=== PATIENT | male | born 1960 | race Caucasian/White ===

== ENCOUNTER 2018-01-24 12:23 | Inpatient (IN) | payer OTHER ==
[~2018-01-24] VITALS: Ht 177.8 cm; Wt 104.3 kg
[~2018-01-24 12:23] MED LIST: ALPRAZOLAM0.5 M3 PO; FLOMAX(MONOGRA0.4 MG PO; PERCOCET 325 MG1 TA2 PO; SIMPLY SLEEP25 MG PO
--- NOTE | 2018-01-24 14:14 | ED GENERAL ADULT ---
History of Present Illness General Chief Complaint: Allergy Symptoms Stated Complaint: ALLERGIC REACTION, "HIVES" Source: patient Exam Limitations: no limitations Vital Signs & Intake/Output Vital Signs & Intake/Output Vital Signs Date Time Temp Pulse Resp B/P B/P Pulse O2 O2 Flow FiO2 Mean Ox Delivery Rate 01/24 1509 99 Room Air 01/24 1508 98.0 79 18 134/70 98 Room Air 01/24 1228 98.7 101 20 151/78 97 Room Air Allergies Coded Allergies: bacitracin (RASH 01/24/18) latex (RASH 01/24/18) neomycin (RASH 01/24/18) Reconcile Medications Acetaminophen (Non-Aspirin Pain Relief) 325 MG TABLET 2 TAB PO Q6H PRN PAIN/ FEVER (Reported) Alprazolam (Xanax) 0.5 MG TABLET 1 TAB PO QPM ANXIETY (Reported) Amoxicillin/Potassium Clav (Augmentin 875-125 Tablet) 875 MG-125 MG TABLET 1 TAB PO BID ABX (Reported) Aspirin (Lo-Dose Aspirin EC) 81 MG TABLET.DR 1 TAB PO BID HEART/BLOOD ( Reported) diphenhydrAMINE HCl (Benadryl) 25 MG CAP 2 CAP PO Q4H PRN ALLERGIC REACTION ( Reported) Famotidine (Pepcid) 20 MG TABLET 1 TAB PO BID UNKNOWN (Reported) Lactobacillus Acidophilus (Probiotic) (Unknown Strength) CAPSULE (Unknown Dose ) PO DAILY PROBIOTIC (Reported) Omeprazole 40 MG CAPSULE.DR 1 CAP PO QHS GI (Reported) Prednisone (Unknown Strength) TABLET (Unknown Dose) PO AD STEROID TAPER ( Reported) Triage Note: PT TO ED C/O ? ALLERGIC REACTION. PT STATES HE IS S/P TOTAL HIP REPLACEMENT 12 DAYS AGO. PT STARTED WITH HIVES ON THURSDAY, WENT TO [facility] AND WAS GIVEN PREDNISONE. STATES THIS AM HIVES ARE WORSE AND ALL OVER. TOOK BENADRYL AT 0700 THIS AM. DENIES NEW SOAP, DETERGENT, LOTION. Triage Nurses Notes Reviewed? yes HPI: 58-year-old male presents emergency department reporting full body hives and itching. He states on January 12, 2018 he had right hip total replacement by Dr. Langley. He states he was given antibiotics at that time during the surgery but was not sent home on any antibiotics. He states that as the days passed he was taking oxycodone 10 mg which he has taken in the past when he had another surgery without any reaction to this. The last dose of this he took was last night. He had been taking hydrocodone-acetaminophen for the last couple of months rx'd by his PCP because of the right hip pain since it was "bone on bone ". He states that the hives and itching have been ongoing for about a week and a half, states he has tried taking Benadryl was also seen by PCP who had given him prednisone to take home. Patient reports he had started this on Thursday however no relief over the last 2 days. He also reports worsening from yesterday into today. He states that the point where he thinks he may have difficulty breathing soon. At this time he denies shortness of breath, chest pain, difficulty breathing, nausea/vomiting. Past History Travel History Traveled to [place] past 21 day No Medical History Any Pertinent Medical History? see below for history Gastrointestinal: GERD Musculoskeletal: right hip replacement Surgical History Surgical History: hip replacement (R) Psychosocial History What is your primary language Portuguese Tobacco Use: Never used ETOH Use: denies use Illicit Drug Use: denies illicit drug use Family History Hx Contributory? No Review of Systems Review of Systems Constitutional: Reports: see HPI. EENTM: Reports: no symptoms. Respiratory: Reports: see HPI. Cardiovascular: Reports: no symptoms. GI: Reports: no symptoms. Genitourinary: Reports: no symptoms. Musculoskeletal: Reports: no symptoms. Skin: Reports: see HPI. Neurological/Psychological: Reports: no symptoms. Hematologic/Endocrine: Reports: no symptoms. Immunologic/Allergic: Reports: no symptoms. All Other Systems: Reviewed and Negative Physical Exam Physical Exam General Appearance: well developed/nourished, no apparent distress, alert, awake , comfortable, profusely itching during exam Head: atraumatic, normal appearance Eyes: Bilateral: normal appearance. Ears, Nose, Throat: lips appear taught, face mildly edematous Neck: normal inspection, full range of motion Respiratory: normal breath sounds, chest non-tender, no respiratory distress, lungs clear Cardiovascular: regular rate/rhythm, normal peripheral pulses Peripheral Pulses: 3+ radial (R), 3+ radial (L) Gastrointestinal: normal bowel sounds, soft, non-tender Back: normal inspection, normal range of motion Extremities: normal inspection, normal capillary refill, normal range of motion Neurologic/Psych: no motor/sensory deficits, awake, alert, oriented x 3, normal gait, normal mood/affect Skin: diffuse generalized erythematous wheals and several areas of excoriations Core Measures ACS in differential dx? No CVA/TIA Diagnosis: No Sepsis Present: No Sepsis Focused Exam Completed? No Progress Differential Diagnoses I considered the following diagnoses in my evaluation of the patient: [ anaphylaxis, contact dermatitis, drug reaction] Plan of Care: Orders Procedure Date/time Status HIGH SENSITIVITY CRP 01/24 1653 Active WESTERGREN SED RATE 01/24 165 Active COMPLEMENT C4 01/24 165 Active COMPLEMENT C3 01/24 165 Active COMPREHENSIVE METABOLIC PANEL 01/24 143 Complete CBC WITHOUT DIFFERENTIAL 01/24 143 Complete Laboratory Tests 01/24/18 1507: Anion Gap 10, Estimated GFR > 60, BUN/Creatinine Ratio 16.7, Glucose 99, Calcium 9.1, Total Bilirubin 0.6, AST 40, ALT 51, Alkaline Phosphatase 97, Total Protein 7.1, Albumin 4.0, Globulin 3.1, Albumin/Globulin Ratio 1.3, CBC w Diff NO MAN DIFF REQ, RBC 4.23 L, MCV 85.5, MCH 28.9, MCHC 33.8, RDW 13.1, MPV 7.3 L, Gran % 89.6 H, Lymphocytes % 6.9 L, Monocytes % 2.5, Eosinophils % 0.9, Basophils % 0.1, Absolute Granulocytes 11.8 H, Absolute Lymphocytes 0.9 L, Absolute Monocytes 0.3, Absolute Eosinophils 0.1, Absolute Basophils 0 58-year-old male had presented to the emergency department reporting full body itching and hives for the last week and a half. Recent surgery on January 12, 2018 for right hip replacement with Dr. Langley. Patient denies any new medications other than the oxycodone he has been taking. Last dose 10mg oxycodone yesterday evening. Patient was given Solu-Medrol, Benadryl, and Pepcid IV upon initial intake into the ED. After several hours, patient reports no better and almost feels slightly worse. Spoke with Dr. Cee, will consider admission for patient. Spoke with case management, patient will be full admission. Paged hospitalist. -Spoke with Dr. Suarez, requesting CRP, ESR, and complement levels - ordered. MOD aware. Initial ED EKG: none Departure Departure Disposition: HOME OR SELF CARE Condition: Stable Clinical Impression Primary Impression: Allergic reaction Qualifiers: Encounter type: initial encounter Qualified Code: T78.40XA - Allergy, unspecified, initial encounter Referrals: Dominic MILLER,Heron Carpenter (PCP/Family) Departure Forms: Customer Survey General Discharge Information Admission Note Spoke With: Erick MILLER,José Antonio Francois Documentation of Exam: Documentation of any treatments & extenuating circumstances including Concerns Regarding Discharge (functional status, medication knowledge or non-compliance, living conditions, etc.) that warrant an admission rather than observation: [ Full-body hives/itching refractory to IV meds (benadryl, solumedrol, pepcid)] Critical Care Note Critical Care Note Critical Care Time: non-applicable ED Attending Observation Initial Observation Note: I have seen and personally examined GRISELDA DARNELL on 01/24/18 at 1543. I agree with the current emergency department documentation. The disposition (admission or discharge) is uncertain at this time, he needs a period of observation for the following reason(s): The ED Nurse caring for this patient has been personally informed as to what the patient is being observed for.
[2018-01-24] MEDS ORDERED: AUGMENTIN 875-1 EACH PO (14:33)
[2018-01-24] MEDS ORDERED: PEPCID20 M1 PO (14:33)
[2018-01-24] MEDS ORDERED: PREDNISONE10 M2 PO (14:33)
[2018-01-24] MEDS ORDERED: LO-DOSE ASPIRIN81 MG PO (14:34)
[2018-01-24] MEDS ORDERED: BENADRYL25 MG PO (14:34)
[2018-01-24] MEDS ORDERED: OMEPRAZOLE40 M1 PO (14:36)
[2018-01-24] MEDS ORDERED: NON-ASPIRIN PA325 MG PO (14:36)
[2018-01-24] MEDS ORDERED: PROBIOTIC1 EACH PO (14:37)
[2018-01-24] MEDS ORDERED: XANAX0.5 M1 PO (14:37)
[2018-01-24 15:23] LABS: ABSOLUTE BASOPHIL COUNT 0 /CUMM (0.0-0.2); ABSOLUTE EOSINOPHIL COUNT 0.1 /CUMM (0.0-0.7); ABSOLUTE GRANULOCYTE CT 11.8 /CUMM (1.4-6.5); ABSOLUTE LYMPH COUNT 0.9 /CUMM (1.2-3.4); ABSOLUTE MONOCYTE COUNT 0.3 /CUMM (0.10-0.60); BASOPHIL % 0.1 % (0.0-2.0); EOSINOPHIL % 0.9 % (0-5); GRANULOCYTE % 89.6 % (42.2-75.2); HEMATOCRIT 36.2 % (42-52); MEAN CORPUSCULAR HGB 28.9 PG (27.0-31.0); MEAN CORPUSCULAR HGB CONC 33.8 G/DL (33.0-37.0); MEAN CORPUSCULAR VOLUME 85.5 FL (80.0-94.0); MEAN PLATELET VOLUME 7.3 FL (7.4-10.4); PLATELET COUNT 333 /CUMM (130-400); RBC DISTRIBUTION WIDTH 13.1 % (11.5-14.5); RED BLOOD CELL CT 4.23 /CUMM (4.70-6.10)
[2018-01-24 15:26] LABS: WHITE BLOOD CELL COUNT 13.2 /CUMM (4.8-10.8)
--- NOTE | 2018-01-24 17:16 | History & Physical ---
Shad Rodriges 01/24/18 1716: General Information and HPI MD Statement: I have seen and personally examined GRISELDA DARNELL and documented this H&P. The patient is a 58 year old M who presented with a patient stated chief complaint of [Acute Urticaria]. Source of Information: patient, family Exam Limitations: no limitations History of Present Illness: Mr. Darnell is a 58yoM with a non-significant past medical history. Patient came into the hopsital today because of severe itching and hives on his back. Patient had a total hip replacement with Dr. Langley at [facility] on January 12, and was discharged home on January 13, with approx 10 medications. Patient had taken nearly all of the medications on that list except for Celebrex. Patient states on thursday (01/18/18), he was feeling well and went into his surgeons office for a follow up visit, where his Oxycodone was increased from 5mg to 10mg. On night (01/21/18) patient noticed an itch which started at his right foot, and eventually involved both of his hands. Hives were also present intially on his right foot and both hands. On thursday patient went to his PCP's office and met Dr. Arias, who started the patient on Prednisone 10mg, Famotidine, Benadryl and Augmentin. Patient also called his surgeon's office and they discontinued Celebrex. Patient had taken 2 doses of the medications prescribed by Dr. Arias, and states he began to feel better. Today January 24, patient states he took benadryl in the morning and it put him to sleep in his chair, when he woke up he had hives throughout his back, along with severe itching throughout his body. THis was also accompanied by: having difficulty breathing, wheezing, difficulty swallowing, swelling of his face, hand and feet. Allergies/Medications Allergies: Coded Allergies: bacitracin (RASH 01/24/18) latex (RASH 01/24/18) neomycin (RASH 01/24/18) Home Med list Acetaminophen (Non-Aspirin Pain Relief) 325 MG TABLET 2 TAB PO Q6H PRN PAIN/ FEVER (Reported) Alprazolam (Xanax) 0.5 MG TABLET 1 TAB PO QPM ANXIETY (Reported) Amoxicillin/Potassium Clav (Augmentin 875-125 Tablet) 875 MG-125 MG TABLET 1 TAB PO BID ABX (Reported) Aspirin (Lo-Dose Aspirin EC) 81 MG TABLET.DR 1 TAB PO BID HEART/BLOOD ( Reported) diphenhydrAMINE HCl (Benadryl) 25 MG CAP 2 CAP PO Q4H PRN ALLERGIC REACTION ( Reported) Famotidine (Pepcid) 20 MG TABLET 1 TAB PO BID UNKNOWN (Reported) Lactobacillus Acidophilus (Probiotic) (Unknown Strength) CAPSULE (Unknown Dose ) PO DAILY PROBIOTIC (Reported) Omeprazole 40 MG CAPSULE.DR 1 CAP PO QHS GI (Reported) Prednisone (Unknown Strength) TABLET (Unknown Dose) PO AD STEROID TAPER ( Reported) Compliance With Home Meds: GOOD Past History Travel History Traveled to [place] past 21 day No Medical History Gastrointestinal: GERD Musculoskeletal: right hip replacement January 12, 2017. Dr. Langley, Partial L. knee replacement January 2016. Replacement of partial L. Knee in february 2016. Surgical History Surgical History: hernia repair-inguinal (R. hernia repair ), hernia repair -umbilical (mid ), hip replacement (R), knee replacement (Parital l.knee replacment 2015), R. Meniscal tear 2011. L. Meniscial tear 2013 Past Family/Social History Psychosocial History Where do you live? Home Who Do You Live With? spouse, child Services at Home: None Smoking Status: Never Smoked ETOH Use: denies use Illicit Drug Use: denies illicit drug use Employment History Employment Temporary Disability Review of Systems Review of Systems Constitutional: Reports: see HPI. Exam & Diagnostic Data Last 24 Hrs of Vital Signs/I&O Vital Signs Date Time Temp Pulse Resp B/P B/P Pulse O2 O2 Flow FiO2 Mean Ox Delivery Rate 01/243 9802.0 71 18 140/82 96 Room Air 01/24 1855 98.8 84 16 154/88 96 Room Air 01/24 1827 98.0 77 16 140/68 95 Room Air 01/24 1509 99 Room Air 01/24 1508 98.0 79 18 134/70 98 Room Air 01/24 1228 98.7 101 20 151/78 97 Room Air Intake & Output 01/24 1600 / 0800 07 0000 Intake Total Output Total Balance Patient 230 lb Weight Weight Estimated Measurement Method Physical Exam General Appearance Alert, Oriented X3, Cooperative Skin well-circumscribed, erythematous, pruritic plaques present throughout body HEENT PERRLA, EOMI, Mucous Membr. moist/pink, Swelling of face and lips Neck Supple, +2 Carotid Pulse wo Bruit, No LAD Cardiovascular Regular Rate, Normal S1, Normal S2 Lungs Clear to Auscultation, Normal Air Movement Abdomen Normal Bowel Sounds, Soft, No Tenderness Neurological Normal Speech, Strength at 5/5 X4 Ext, Normal Tone, Sensation Intact Extremities No Cyanosis, Normal Pulses, Swelling of hands and feet 4/4 Vascular Normal Pulses, Pulses Symmetrical Assessment/Plan Assessment: Mr. Darnell is a 58yoM with a non-significant past medical history. Patient came into the hopsital today because of severe itching and hives on his back. Problem List: 1. Acute Pruritus w/ Angioedema #Acute Pruritus w/ Angioedema: Most likely due to 2 relatively new medications in patients regimen. He has taken gabapentin before, but cannot recall any reaction, he has never taken celebrex before. There is no respiratory compromise , or mucosal involvement. Plan: - Admit to floor - IV Methylprednisolone 40mg BID - IV Famotidine 20mg BID - IV Benadryl Q6prn - Benadryl Cream - PO Hydroxyzine 20mg - F/u C3, C4 #Diet: HHD #DVT ppx: ALPS and ASA (no AC for now per Orthopedic plan post-op) #Code status: Full code As Ranked By This Provider Problem List: 1. Allergic reaction Qualifiers Encounter type: initial encounter Qualified Code: T78.40XA - Allergy, unspecified, initial encounter Core Measures/Misc (03/29) Acute Coronary Syndrome ACS Diagnosis: No Congestive Heart Failure Congestive Heart Failure Diagnosis No Cerebrovascular Accident CVA/TIA Diagnosis: No VTE (View Protocol) VTE Risk Factors Age>40 No Mechanical VTE Prophylaxis d/t N/A MechProphylax Ordered No VTE Pharm Prophylaxis d/t NA PharmProphylax ordered Sepsis (View protocol) Sepsis Present: No If YES complete Sepsis Event Note If YES complete Sepsis Event Note Dillon Simms MD 01/24/18 3992: Core Measures/Misc (03/29) Sepsis (View protocol) If YES complete Sepsis Event Note If YES complete Sepsis Event Note Resident Review Statement Resident Statement: examined this patient, discussed with email marketing intern, agreed with email marketing intern, discussed with family, reviewed EMR data (avail), discussed with nursing , discussed with case mgmt, reviewed images, amended to note Other Findings: 58-year-old male with past medical history of hypertension, left knee replacement, and a recent hip replacement at [facility], presented to the emergency department with worsening generalized body heights and itching since past ~5 days, not relieved by oral medication prescribed by his PCP. He recalls Celebrex as one of the new medication he has been taking since the surgery, but also has been using oxycodone after surgery, as opposed to Vicodin prior to that. He mentioned the rash appearing from right foot, moving towards the whole body, as involved the scalp, but no mucosal involvement. He does not report any chest pain, shortness of breath, lip swelling, tongue swelling, feeling of throat closing up, dizziness, or palpitation. He does not recall any foreign body exposure, insect bite, tick bite, new consmetic product/soap use, that might have triggered the event. He is allergic to latex, neomycin, bacitracin, and processed leather, but has never had any severe reaction as this one, or any anaphylactic reaction. His family also does not hold any such history either. In the ED, he received IV steroid, Pepcid, Benadryl, which minimally helped the patient, and given his persistence of symptoms despite IV medications, decision was made to admit him in the general medical floor for further management as follows: #Acute urticarial reaction, possily due to celebrex Among the medications/exposere that the patient is on, Celebrex is fairly new, was Celebrex as well as Neurontin does have potential to cause reactions such as this one. He does not have any mucosal involvement, and does not have any respiratory compromise. He did not improve with IV medication that was given in the emergency department alone, thus will require admission and closer management with IV steroids, antihistamine, and symptomatic treatment. We will also watch him for any respiratory compromise, and will act accordingly. Holding celebrex, and gabapentin. #Will continue his ASA for now and pain medication though. #Diet: HHD #DVT ppx: ALPS and ASA (no AC for now per Orthopedic plan post-op) #Code status: Full code José Antonio Suarez 01/24/181911: Core Measures/Misc (03/29) Sepsis (View protocol) If YES complete Sepsis Event Note If YES complete Sepsis Event Note Attending MD Review Statement Attending Statement Attending MD Statement: examined this patient, discuss w/resident/PA/SENIOR PROGRAM ANALYST, agreed w/resident/PA/SENIOR PROGRAM ANALYST, reviewed EMR data (avail), discussed with nursing Attending Assessment/Plan: 58-year-old male presented with the chief complaints of hives and itching going on for about last few days and worse since last Thursday . Patient had a recent total hip arthroplasty on the right hip done at an outside hospital on January 12 and post surgery was started on oxycodone and Celebrex and gabapentin and aspirin. Patient went to his PCP on Thursday because of the above complaints and was started on by mouth prednisone and Pepcid which he started taking yesterday but since it was not helping him he decided to come to the ER today. Urticaria of unclear etiology-patient most likely had an allergic reaction to one of the new medication he was started on. We have stopped his Celebrex as well as Neurontin as those are his new medications. Patient in the emergency room was given IV Pepcid and IV Solu-Medrol and IV Benadryl. Patient is being admitted for close observation of his respiratory status and given the severe urticaria and hives. Patient will be started on IV Solu-Medrol 40 every 12 hours. We will also put him on IV Pepcid 20 twice a day. We will put him on hydroxyzine and Benadryl as needed. We have sent for CRP and ESR and complement levels. We will follow up on that. Patient denies any family history of angioedema or severe anaphylactic reactions. Discussed with patient as well as patient's family at bedside the care plan.
--- NOTE | 2018-01-24 18:10 | Admission Certification ---
Admission Certification Certification Statement - As attending physician, I certify that at the time of - admission, based on clinical presentation, severity of - symptoms, need for further diagnostic testing and - therapeutic interventions, and risk of adverse outcomes - without in-hospital treatment, in my clinical assessment, - this patient requires an acute hospital stay for a minimum - of two nights or longer. I have also considered psychsocial - factors such as support system, advanced age, financial - issues, cognitive issues, and failed out-patient treatments, - past re-admission history, safety of patient, and lack of - compliance as applicable. Specific rationale supporting this admission is: Severe Hives and allergic reaction to possible medications.
[2018-01-24 18:55] VITALS: BP 154/88
[2018-01-24 22:33] VITALS: BP 140/82
[2018-01-25 06:30] VITALS: BP 120/72
--- NOTE | 2018-01-25 07:58 | PN- Housestaff ---
See Addendum Subjective Follow-up For: Acute Urticaria Subjective: Patient seen and examined at bedside, no acute events overnight, afebrile. Patient has no complaint of today, states he feels like his rash is improving. Denies shortness of breath, chest tightness, difficulty swallowing, vision changes, fever, night sweats, chills. Patient was saw me today that he remembered he was doing some planting, used a new potting soil and was using his hands and right foot to stomp, patient is thinks it could be contributing to his allergic reaction. Review of Systems Constitutional: Reports: see HPI. Objective Last 24 Hrs of Vital Signs/I&O Vital Signs Date Time Temp Pulse Resp B/P B/P Pulse O2 O2 Flow FiO2 Mean Ox Delivery Rate 01/25 0630 98.6 58 20 120/72 96 Room Air 01/24 2233 9802.0 71 18 140/82 96 Room Air 01/24 1855 98.8 84 16 154/88 96 Room Air 01/24 1827 98.0 77 16 140/68 95 Room Air 01/24 1509 99 Room Air 01/24 1508 98.0 79 18 134/70 98 Room Air 01/24 1228 98.7 101 20 151/78 97 Room Air Intake & Output 01/25 0800 01/25 0000 01/24 1600 Intake Total 240 230 Output Total Balance 240 230 Intake, IV 10 Intake, Oral 240 220 Patient 230 lb 230 lb Weight Weight Estimated Estimated Measurement Method Physical Exam General Appearance: Alert, Oriented X3, Cooperative Skin: circumsribed, pruritic plaques present throughout body, improving compared to admission HEENT: Atraumatic, EOMI Neck: Supple, +2 Carotid Pulse wo Bruit Cardiovascular: Regular Rate, Normal S1, Normal S2 Lungs: Clear to Auscultation, Normal Air Movement Abdomen: Normal Bowel Sounds, Soft, No Tenderness Neurological: Normal Speech, Strength at 5/5 X4 Ext Extremities: No Cyanosis, No Edema, Normal Pulses Vascular: Normal Pulses, Pulses Symmetrical Assessment/Plan Assessment: Mr. Peterson is a 58yoM with a non-significant past medical history. Patient came into the hopsital today because of severe itching and hives on his back. Problem List: 1. Acute Pruritus w/ Angioedema #Acute Pruritus w/ Angioedema: Most likely due to 2 relatively new medications in patients regimen. He has taken gabapentin before, but cannot recall any reaction, he has never taken celebrex before. There is no respiratory compromise , or mucosal involvement. Plan: - Admit to floor - IV Methylprednisolone 40mg BID - IV Famotidine 20mg BID - IV Benadryl Q6prn - Benadryl Cream - PO Hydroxyzine 20mg - F/u C3, C4 - Will switch all meds to PO #Diet: HHD #DVT ppx: ALPS and ASA (no AC for now per Orthopedic plan post-op) #Code status: Full code Plan to discharge patient home today, as he recovered much faster then expected. Patient will be sent home with Medrol Pack, Percocet 5/325. Will continue Bendaryl and Famotidine. Will f/u with PCP. Problem List: 1. Allergic reaction Pain Ratin Pain Location: n/a Pain Goal: Remain pain free Pain Plan: n/a Tomorrow's Labs & Rationales: n/a
[2018-01-25 08:34] LABS: ABSOLUTE BASOPHIL COUNT 0 /CUMM (0.0-0.2); ABSOLUTE EOSINOPHIL COUNT 0 /CUMM (0.0-0.7); ABSOLUTE GRANULOCYTE CT 13.3 /CUMM (1.4-6.5); ABSOLUTE LYMPH COUNT 0.6 /CUMM (1.2-3.4); ABSOLUTE MONOCYTE COUNT 0.2 /CUMM (0.10-0.60); BASOPHIL % 0 % (0.0-2.0); EOSINOPHIL % 0 % (0-5); HEMATOCRIT 34.1 % (42-52); MEAN CORPUSCULAR HGB 28.4 PG (27.0-31.0); MEAN CORPUSCULAR HGB CONC 32.8 G/DL (33.0-37.0); MEAN CORPUSCULAR VOLUME 86.6 FL (80.0-94.0); MEAN PLATELET VOLUME 7.7 FL (7.4-10.4); PLATELET COUNT 304 /CUMM (130-400); RBC DISTRIBUTION WIDTH 13.6 % (11.5-14.5); RED BLOOD CELL CT 3.94 /CUMM (4.70-6.10)
[2018-01-25 10:06] LABS: GRANULOCYTE % 94.8 % (42.2-75.2)
[2018-01-25] MEDS ORDERED: MEDROL4 M2 PO (10:34)
[2018-01-25] MEDS ORDERED: PERCOCET 5-3251 EACH PO (10:34)
--- NOTE | 2018-01-25 10:36 | Patient Discharge Instructions ---
Discharge Instructions General Discharge Information You were seen/treated for: Allergic reaction to celecoxib Watch for these problems: Fever, chest pain, shortness of breath Special Instructions: Please take all medications as directed. Please follow-up with primary care. Please do not take celecoxib. Diet Continue normal diet: Yes Activity Full Activity/No Limits: Yes Acute Coronary Syndrome Inclusion Criteria At DC or during hospital stay patient has or had the following: ACS DIAGNOSIS No Discharge Core Measures Meds if any: Prescribed or Continued at Discharge Meds if any: NOT Prescribed or Continued at Discharge Congestive Heart Failure Inclusion Criteria At DC or during hospital stay patient has or had the following: CHF DIAGNOSIS No Discharge Core Measures Meds if any: Prescribed or Continued at Discharge Meds if any: NOT Prescribed or Continued at Discharge Cerebrovascular accident Inclusion Criteria At DC or during hospital stay patient has or had the following: CVA/TIA Diagnosis No Discharge Core Measures Meds if any: Prescribed or Continued at Discharge Meds if any: NOT Prescribed or Continued at Discharge Venous thromboembolism Inclusion Criteria VTE Diagnosis No VTE Type NONE VTE Confirmed by (Test) NONE Discharge Core Measures - Per Current guidelines, there needs to be overlap - treatment for the first 5 days of Warfarin therapy. - If discharged on Warfarin prior to 5 days of - overlap therapy, the patient will need to be - assessed for post discharge needs including - *Post discharge parental anticoagulation - *Warfarin and/or parental anticoagulation education - *Follow up date to check INR post discharge At least 5 days overlap therapy as Inpatient No Meds if any: Prescribed or Continued at Discharge Note: Overlap Therapy is Warfarin and Anticoagulant Meds if any: NOT Prescribed or Continued at Discharge
--- NOTE | 2018-01-25 11:19 | Discharge Summary ---
Visit Information Visit Dates Admission Date: 01/24/18 Discharge Date: 01/25/18 Hospital Course Course Attending Physician: Marck Gallardo MD Primary Care Physician: Dominic MILLER,[facility] Course: Mr. Peterson is a 58yoM with a non-significant past medical history. Patient came into the hopsital today because of severe itching and hives on his back. Patient had a total hip replacement with Dr. Langley at [facility] on January 12, and was discharged home on January 13, with approx 10 medications. On night (01/21/18) patient noticed an itch which started at his right foot, and eventually involved both of his hands. Hives were also present intially on his right foot and both hands. Patient also called his surgeon's office and they discontinued Celebrex. On January 24, patient states he took benadryl in the morning and it put him to sleep in his chair, when he woke up he had hives throughout his back, along with severe itching throughout his body. THis was also accompanied by: having difficulty breathing, wheezing, difficulty swallowing, swelling of his face, hand and feet. ED Vitals: Temp: 98.8, HR 84, RR 16, BP 154/88, O2 sat 96% on RA ED Labs: WBC 13.2, Abs. Gran 11.8, ESR 75, CRP 6.5 Problem List: 1. Acute Urticaria with angioedema ED Course: Patient was given IV Solumedol 125mg one time, IV Famotidine 20mg one time and IV Benadryl 50mg once. Patient was admitted onto general medicine floor GM course: Patient was started on IV methylprednisolone 40mg BID, Famotidine 20mg BID, Benadryl cream, Benadryl 50mg Q6prn and Hydroxyzine. Patient recovered very rapidly, in the next morning he had near complete resolution of hives and edema in response to the medical regiment he was started on. Patient recovered faster then expected, and was discharged home with: Medrol pack, Percocet 5/325. He was instructed to continue Benadryl and Famotidine and to follow up with PCP. Allergies: Coded Allergies: celecoxib (Severe, Rash 01/25/18) bacitracin (RASH 01/24/18) latex (RASH 01/24/18) neomycin (RASH 01/24/18) Disposition Summary Disposition Principal Diagnosis: Acute Urticaria w/ angioedema Additional Diagnosis: N/a Discharge Disposition: home or self care Discharge Instructions General Discharge Information Code Status: Full Code Patient's Diet: Regular Patient's Activity: As tolerated Follow-Up Instructions/Appts: Complete medications as directed. Follow up with PCP, if symptoms worsen contact PCP. Medications at Discharge Discharge Medications: Stop taking the following medications: Amoxicillin/Potassium Clav (Augmentin 875-125 Tablet) 875 MG-125 MG TABLET ORAL TWICE DAILY Prednisone (Prednisone) (Unknown Strength) TABLET ORAL As Directed Continue taking these medications: Famotidine (Pepcid) 20 MG TABLET 1 Tablet ORAL TWICE DAILY Comments: Last Taken: 01/25/18 Time: 0802 diphenhydrAMINE HCl (Benadryl) 25 MG CAP 2 Capsule ORAL Q4H as needed for ALLERGIC REACTION Comments: NOT GIVEN Aspirin (Lo-Dose Aspirin EC) 81 MG TABLET.DR 1 Tablet ORAL TWICE DAILY Qty = 60 Comments: Last Taken: 01/25/18 Time: 0802 Acetaminophen (Non-Aspirin Pain Relief) 325 MG TABLET 2 Tablet ORAL Q6H as needed for PAIN/FEVER Comments: NOT GIVEN Omeprazole (Omeprazole) 40 MG CAPSULE.DR 1 Capsule ORAL TAKE AT BEDTIME Comments: NOT GIVEN Alprazolam (Xanax) 0.5 MG TABLET 1 Tablet ORAL Every night Comments: NOT GIVEN Lactobacillus Acidophilus (Probiotic) (Unknown Strength) CAPSULE Unknown Dose ORAL DAILY Comments: NOT GIVEN Start taking the following new medications: Methylprednisolone. (Medrol) 4 MG TAB.DS.PK 1 Dose Pack ORAL As Directed Qty = 1 No Refills Instructions: 6 on day 1 then reduce by one tablet daily until gone Comments: NOT GIVEN Oxycodone HCl/Acetaminophen (Percocet 5-325 MG Tablet) 5 MG-325 MG TABLET 1 Tablet ORAL EVERY 6 HOURS NEEDED as needed for Severe Pain Qty = 10 No Refills Comments: NOT GIVEN Copies To: Dominic MILLER,Heron Carpenter Attending MD Review Statement Documenting Attending: Marck Gallardo MD Other Findings: The patient was seen and agree with plan of care upon discharge. Follow-up with PCP. Medrol Dosepak, Benadryl, and Pepcid. Stop Celebrex.
== END 2018-01-25 11:44 | disposition home health service (06) | DRG 607 ==
LOC: ERH 12:23 → ERHI 17:25 → ENRESERV 18:04 → ENTRNSPT 18:36 → 2NB 18:43 → CMPTRNSPT 18:50 → 2NB 01-25 07:37 → ENPENDDIS 01-25 11:07 → 2NB 01-25 11:44
PROVIDERS: Physician Assistant; Student in an Organized Health Care Education/Training Program
DX: L50.0 Allergic urticaria (principal); T39.395A Adverse effect of other nonsteroidal anti-inflammatory drugs [NSAID], initial encounter; Z88.8 Allergy status to other drugs, medicaments and biological substances; Z91.040 Latex allergy status; Z96.641 Presence of right artificial hip joint; Z96.653 Presence of artificial knee joint, bilateral; Y92.019 Unspecified place in single-family (private) house as the place of occurrence of the external cause
CPT/HCPCS: 2NBSP; 86160; 36415; 82436; J0131; J1200; J2920; J2930